=== PATIENT | female | born 1985 | race Caucasian/White ===

== ENCOUNTER 2016-12-03 17:31 | Emergency (ER) | payer MEDICAID ==
[~2016-12-03] VITALS: Ht 165.1 cm; Wt 77.1 kg
[2016-12-03] MEDS ORDERED: IV NS 0.9% 500 ML BAG IV ONE (18:00)
--- NOTE | 2016-12-03 18:00 | NUR ---
PT CAME IN FOR CHEST RASH, ABD CRAMPING, DIARRHEA, 30 WEEKS PREGANANT. DENIES BLEEDING, DISCHARGES. RESIDENT HALL DIRECTOR AT BS FOR EVAL. VSS. DENIES FEVER. SAFETY AND COMFORT MEASURES PROVIDED. WILL MONITOR.
[2016-12-03] MEDS ORDERED: IV NS 0.9% 500 ML IV ONE (18:03)
[2016-12-03] MEDS ORDERED: IV SET PRIMARY PUMP SET 1 EA INFUS.SET MC ONE (18:03)
--- NOTE | 2016-12-03 18:10 | NUR ---
PT MEDICATED ORDERED.
[2016-12-03 18:12] LABS: BASOPHILS % (AUTO) 0.2 % (0.0-2.0); EOSINOPHILS # (AUTO) 0.1 /CMM (0.0-0.7); EOSINOPHILS % (AUTO) 0.9 % (0.0-6.0); HEMATOCRIT 39 % (33-45); HEMOGLOBIN 13.1 g/dL (11.5-14.8); LYMPHOCYTES # (AUTO) 1.7 /CMM (0.8-4.8); LYMPHOCYTES % (AUTO) 17.1 % (20.0-44.0); MEAN CORPUSCULAR HEMOGLOBIN 29 PG (26.0-33.0); MEAN CORPUSCULAR HGB CONC 34 g/dl (31.0-36.0); MEAN CORPUSCULAR VOLUME 88 fL (82-100); MONOCYTES # (AUTO) 0.9 /CMM (0.1-1.30); MONOCYTES % (AUTO) 8.5 % (2.0-12.0); NEUTROPHILS # (AUTO) 7.3 /CMM (1.8-8.9); NEUTROPHILS % (AUTO) 73.3 % (43.0-81.0); PLATELET COUNT (AUTO) 194 /CMM (150-450); RDW COEFFICIENT OF VARIATION 13.4 (11.5-15.0); RED BLOOD CELL COUNT(AUTO) 4.47 MIL/uL (4.0-5.2)
--- NOTE | 2016-12-03 18:17 | NUR ---
US AT BS.
[2016-12-03 18:23] LABS: CALCIUM, SERUM 9.5 mg/dL (8.5-10.1); CREATININE 0.7 mg/dL (0.6-1.3); POTASSIUM 4.2 mmol/L (3.5-5.1)
[2016-12-03 18:29] LABS: BILIRUBIN,DIRECT 0.1 mg/dL (0.0-0.2); BILIRUBIN,TOTAL 0.1 mg/dL (0.2-1.0)
--- NOTE | 2016-12-03 18:40 | NUR ---
URINE SAMPLE OBTAINED, SENT.
[2016-12-03 19:05] LABS: APPEARANCE,URINE Clear (CLEAR); BILIRUBIN,URINE Negative (NEGATIVE); BLOOD, URINE Negative Ery/uL (NEGATIVE); COLOR,URINE Yellow (YELLOW); KETONES,URINE Negative (NEGATIVE); LEUKOCYTE ESTERASE ,URINE Trace (NEGATIVE); NITRITE, URINE Negative (NEGATIVE); PROTEIN,URINE Negative (NEGATIVE); UGLUCOSE Negative (NEGATIVE); UROBILINOGEN,URINE 0.2 EU/dL (0.2)
[2016-12-03 19:10] LABS: RBC,URINE NONE SEEN /HPF (0-2)
[2016-12-03 19:11] LABS: ADD URINE CULTURE NO; BACTERIA,URINE Rare /HPF (None Seen); SQUAMOUS EPITHELIAL CELL,UR Rare /HPF (None Seen)
--- NOTE | 2016-12-03 19:19 | NUR ---
REPORT GIVEN TO SIERRA PIERSON FOR GELY.
[2016-12-03 19:46] LABS: INR 0.9 (0.87-1.13); PROTHROMBIN TIME 9.6 SECS (9.5-12.7)
--- NOTE | 2016-12-03 20:40 | NUR ---
CALLED DR.EDWARD STEWARD, , TRANSFERRED CALL TO PATRICIA ([place])
[2016-12-03 21:09] VITALS: BP 120/68
== END 2016-12-03 21:09 | disposition home or self-care (01) ==
LOC: ER 17:31
DX: O26.891 Other specified pregnancy related conditions, first trimester (principal); O23.43 Unspecified infection of urinary tract in pregnancy, third trimester; N13.30 Unspecified hydronephrosis; F17.200 Nicotine dependence, unspecified, uncomplicated; Z88.0 Allergy status to penicillin; Z3A.30 30 weeks gestation of pregnancy
CPT/HCPCS: 36415; 76705; 80048; 80076; 81001; 85025; 85730; 87086; 96360; 99285; A4606; J7040; Z7610; 81000-TC

== ENCOUNTER 2017-12-06 20:22 | Emergency (ER) | payer MEDICAID, OTHER ==
[~2017-12-06] VITALS: Ht 167.6 cm; Wt 59.0 kg
[2017-12-06 21:00] VITALS: BP 132/84
--- NOTE | 2017-12-06 21:00 | NUR ---
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 PT AOX3 RR EVEN AND UNLABORED. NO SOB NOTED. NAD NOTED. NO NVD AT THIS TIME. PT GOWNED AND PLACED ON MONITOR WAITING FOR MD HOYT.
--- NOTE | 2017-12-06 21:04 | NUR ---
DR. BELTRAN AT BEDSIDE FOR EVAL.
== END 2017-12-06 21:15 | disposition home or self-care (01) ==
LOC: ER 20:33
DX: S09.8XXA Other specified injuries of head, initial encounter (principal); F17.200 Nicotine dependence, unspecified, uncomplicated; Z88.0 Allergy status to penicillin; W18.00XA Striking against unspecified object with subsequent fall, initial encounter; Y93.89 Activity, other specified; Y92.89 Other specified places as the place of occurrence of the external cause; Y99.8 Other external cause status
CPT/HCPCS: A4606; Z7502; Z7610